=== PATIENT | male | born 1960 | race Caucasian/White ===

== ENCOUNTER 2016-10-10 10:47 | Inpatient (IN) | payer OTHER ==
[2016-09-17 12:03] VITALS: BMI 53.0
--- NOTE | 2016-09-17 12:33 | PAT Medication Instructions ---
Service Date Sep 17, 2016. Current Home Medication List Albuterol Sulfate (Proair Respiclick), 2 PUFF INH Q4 PRN for SOB/Wheezing Amitriptyline Hcl (Elavil), 50 MG PO HS Aripiprazole (Abilify), 2 TAB PO HS Ascorbic Acid (Vitamin C), 500 MG PO QAM Aspirin (Aspirin Ec), 81 MG PO DAILY Bupropion (Wellbutrin Sr), 150 MG PO NOON Clonazepam (Klonopin), 2.5 TAB PO HS Gabapentin (Neurontin), 300 MG PO BID Latanoprost (Xalatan 0.005% Oph Cecilia), 1 DROPS OP DAILY Levothyroxine Sodium (Levothyroxine Sodium), 1 TAB PO QPM Losartan Potassium & Hydrochlo (Losartan Potassium/Hydroc), 1 TAB PO QAM Multiple Vitamins W/ Minerals (Centrum Silver Adult 50+), 1 TAB PO QAM Simvastatin (Zocor), 10 MG PO QPM Medication Instructions For Your Scheduled Surgery - Instructed by surgeon's office to hold for one week prior to surgery: Aspirin (Aspirin Ec), 81 MG PO DAILY - Hold the following medications the morning of surgery: Losartan Potassium & Hydrochlo (Losartan Potassium/Hydroc), 1 TAB PO QAM Multiple Vitamins W/ Minerals (Centrum Silver Adult 50+), 1 TAB PO QAM Ascorbic Acid (Vitamin C), 500 MG PO QAM - Take the following medications the morning of surgery with a sip of water OTHERWISE NOTHING TO EAT OR DRINK AFTER MIDNIGHT: Latanoprost (Xalatan 0.005% Oph Cecilia), 1 DROPS OP DAILY Gabapentin (Neurontin), 300 MG PO BID Bupropion (Wellbutrin Sr), 150 MG PO NOON Albuterol Sulfate (Proair Respiclick), 2 PUFF INH Q4 PRN for SOB/Wheezing (USE IF NEEDED; BRING TO HOSPITAL) - Take the following medications as scheduled the night before surgery: Simvastatin (Zocor), 10 MG PO QPM Amitriptyline Hcl (Elavil), 50 MG PO HS Aripiprazole (Abilify), 2 TAB PO HS Clonazepam (Klonopin), 2.5 TAB PO HS Levothyroxine Sodium (Levothyroxine Sodium), 1 TAB PO QPM Gabapentin (Neurontin), 300 MG PO BID Albuterol Sulfate (Proair Respiclick), 2 PUFF INH Q4 PRN for SOB/Wheezing If you have any questions please call us at [phone] (Raissa Lewis PA-C ) or [phone] or [phone]
[2016-09-17 13:12] LABS: BASO % 0.3 %; BASO ABS # 0.04 K/uL (0-0.2); COMPLETE YES; EOS % 1.8 %; HEMATOCRIT 43.7 % (42-52); IG% 0.3 %; LYMPH % 14.8 %; LYMPH ABS # 1.75 K/uL (1.2-3.4); MEAN CELL VOLUME 95.6 fL (80-100); MEAN CORPUSCULAR HEMOGLOBIN 32.8 pg (25-34); MEAN CORPUSCULAR HGB CONC 34.3 g/dl (32-36); MEAN PLATELET VOLUME 10.2 fL (7.4-10.4); MONO % 7.9 %; NEUT % 74.9 %; PLATELET COUNT 239 K/uL (130-400); RED BLOOD COUNT 4.57 M/uL (4.7-6.1); WHITE BLOOD COUNT 11.85 K/uL (4.8-10.8)
--- NOTE | 2016-09-17 13:22 | DIAGNOSTIC IMAGING REPORT ---
TWO VIEW CHEST CLINICAL HISTORY: Preoperative examination. FINDINGS: PA and lateral chest radiographs are compared to study dated 04/05/2015. The examination is significant degraded by large body habitus. The heart appears mildly enlarged. The pulmonary vasculature is noncongested. Bibasilar atelectasis is observed. The lungs and pleural spaces are otherwise clear. There is no pneumothorax. The bony thorax appears intact. IMPRESSION: Mild cardiac enlargement with no active disease in the chest. Electronically signed by: Robin Matthews M.D. 09/17/2016 1:20 PM Dictated Date/Time: 09/17/2016 1:19 PM
[2016-09-17 13:31] LABS: ESTIMATED AVERAGE GLUCOSE 117 mg/dl; HA1C FLAG Normal (Normal)
[2016-09-17 13:35] LABS: PARTIAL THROMBOPLASTIN RATIO 1.1; PROTHROMBIN TIME (PATIENT) 11.1 SECONDS (9.0-12.0)
[2016-09-17 13:41] LABS: CALCIUM 9.5 mg/dl (8.5-10.1); CREATININE 0.76 mg/dl (0.60-1.40); POTASSIUM 4.3 mmol/L (3.5-5.1)
--- NOTE | 2016-09-17 15:20 | History and Physical ---
History & Physical PROCEDURE: Left knee replacement. HISTORY OF PRESENT ILLNESS: The patient is a pleasant 54-year-old male who presents for preoperative evaluation prior to left knee replacement. The patient states that he is having pain in the knee for several years now, which is gradually worsening. It has gotten to the point now that it is affecting his daily activities including walking, standing, going up and down steps. He takes oral anti-inflammatories including aspirin and ibuprofen. He is on chronic hydrocodone from his PCP. He had a previous cortisone injection and viscosupplementation without relief. He does also ambulate with a cane. After discussing further care would like to proceed with a left knee replacement. he had his right TKA in 2015. PAST MEDICAL HISTORY: 1. Hypertension. 2. High cholesterol. 3. Sleep apnea. 4. Anxiety. 5. Hypothyroidism. ALLERGIES: PENICILLIN CAUSES ITCHING. CURRENT MEDICATIONS: 1. Hydrocodone 10/325 p.r.n. pain. 2. Aspirin 81 mg daily. 3. Losartan/HCTZ 100/12.5 mg daily. 4. Abilify 20 mg daily. 5. Simvastatin 10 mg daily. 6. Latanoprost 2.5 daily. PAST SURGICAL HISTORY: Right Total Knee Replacement FAMILY HISTORY: Noncontributory. SOCIAL HISTORY: The patient denies a history of smoking or tobacco use. No alcohol consumption. REVIEW OF SYSTEMS: Otherwise negative. Please see HPI for pertinent positives. PHYSICAL EXAMINATION: GENERAL: Pleasant male in no acute distress, alert and oriented x3, he weighs 325 pounds. HEENT: Normocephalic, atraumatic. CARDIAC: Regular rate and rhythm. No murmurs or gallops were appreciated. Resting pulse 80 beats per minute. LUNGS: Clear to auscultation without rales or wheeze bilaterally. ABDOMEN: Soft, nontender, obese. Bowel sounds present. EXTREMITIES: Left lower extremity neurovascularly intact. Calves are soft and nontender. DP pulses +2. Overall has varus alignment. He has positive crepitation with motion, range of motion is 0/5/110. He has diffuse tenderness to the knee. Knee is ligamentously stable. IMAGING: Reviewed shows complete loss of joint space medial compartment with varus alignment, subchondral sclerosis, focal osteophytes, and joint space narrowing. Also has degenerative changes of the patellofemoral joint. IMPRESSION: 1. Left knee degenerative joint disease. 2. Hypertension. 3. High cholesterol. 4. Anxiety. PLAN: Further care was discussed with Yehuda. At this point in time he has failed conservative measures and would like to proceed with a left knee replacement at [facility] as scheduled. Will follow up postop 2 weeks postop for staple removal, sooner if he is having any problems. Placed on aspirin 325 mg 1 tablet p.o. b.i.d. for one month postop.
[~2016-10-10] VITALS: Ht 177.8 cm; Wt 166.4 kg
[2016-10-10] MEDS: TRANEXAMIC ACID INJ 1,000 MG in SODIUM CHLORIDE 0.9% 100ML 100 ML IV SCH ×2 (06:30→14:57)
--- NOTE | 2016-10-10 07:12 | History & Physical Bridge Note ---
H&P Re-Evaluation Bridge Note: I have examined the patient, reviewed the History & Physical and in the interval since the performance of the History & Physical I have noted the following changes of clinical significance: No changes noted
[~2016-10-10 10:47] MED LIST: ABL10 PO; ACETAMINOPHEN 500 MG TAB PO SCH; ALBU18002 INH; AMT50 PO; ASCA500 PO; ASPI81TA28 PO; BUPIVACAINE 0.5 % 5 MG/1 ML PF 10ML VIAL ONE; BUPR-79 PO; CEFAZOLIN 3000 MG/65 ML D5W 65 ML IV SCH; CLON1TAB3 PO; CeleBREX 200 MG CAP PO SCH; DEXAMETHASONE 4 MG TAB PO SCH; FAMOTIDINE 20 MG TAB PO SCH; GABA-113 PO; GABAPENTIN 300 MG CAP PO SCH; LACTATED RINGER'S 1000ML 1,000 ML IV SCH; LACTATED RINGER'S 1000ML 500 ML IV ONE; LATA0.5S OP; LEVO175T3 PO; LOSA100T26 PO; METOCLOPRAMIDE HCL 10 MG TAB PO SCH; MULT-845 PO; ROPIVACAINE 5MG/ML 30 ML 150 MG, BUPIVACAINE/EPINEPHR 0.5% MPF 30 ML, KETOROLAC TROMETH... INFIL SCH; SIMV10TA2 PO; ~ANCEF~ALLERGY NOTED TO ORDERED MEDICATION SCH
[2016-10-10] MEDS ORDERED: ORTHO JOINT ANESTHETIC ONE (11:35)
[2016-10-10 12:06] VITALS: BP 120/94; PULSE 107; TEMP 36.5; O2SAT 98; Ht 177.8 cm; Wt 166.4 kg
[2016-10-10] MEDS ORDERED: FENTANYL CITRATE INJ 50 MCG/1 ML 2 ML VIAL IV PRN (12:15)
[2016-10-10] MEDS ORDERED: EpHEDrine SULFATE INJ 50 MG/ML AMP IV PRN (12:15)
[2016-10-10] MEDS ORDERED: ONDANSETRON INJ 2 MG/ML 2 ML VIAL IV PRN ×2 (12:15→17:30)
[2016-10-10] MEDS ORDERED: ATROPINE SULFATE 0.1 MG/ML 5ML SYR IV PRN (12:15)
[2016-10-10] MEDS ORDERED: MIDAZOLAM HCL 1 MG/ML 2ML VIAL ONE ×4 (12:22→14:41)
[2016-10-10] MEDS ORDERED: FENTANYL CITRATE INJ 50 MCG/1 ML 2 ML VIAL ONE (12:23)
[2016-10-10] MEDS ORDERED: VANCOMYCIN INJ 2,000 MG in SODIUM CHLORIDE 0.9% 500ML 500 ML IV ONE (13:30)
[2016-10-10] MEDS ORDERED: PROPOFOL IV EMULSION 10 MG/ML 20 ML VIAL IV ONE ×2 (14:38→16:18)
[2016-10-10] MEDS ORDERED: BACITRACIN 50000 UNIT VIAL IR ONE (16:37)
[2016-10-10] MEDS ORDERED: POVIDONE-IODINE OP SOLN 30 ML BTL TOP ONE (16:37)
--- NOTE | 2016-10-10 17:17 | [facility] Post Operative Brief Note ---
Immediate Operative Summary Operative Date Oct 10, 2016. Pre-Operative Diagnosis OSTEOARTHRITIS LEFT KNEE Post-Operative Diagnosis OSTEOARTHRITIS LEFT KNEE Procedure(s) Performed LEFT TOTAL KNEE ARTHROPLASTY Surgeon DR SMITH Noodle Press Operator Surgeon(s) YASEMIN BURNETTE Estimated Blood Loss 20 Findings severe djd left knee knee Specimens BONE AND TISSUE LEFT KNEE Complication(s) None Disposition Recovery Room / PACU
[2016-10-10] MEDS ORDERED: [UNRECOGNIZED DRUG - REMARK] SCH (17:30)
[2016-10-10] MEDS ORDERED: SOD PHOSPHATE/SOD BIPHOSPHATE ENEMA 132 ML BTL PR PRN (17:30)
[2016-10-10] MEDS ORDERED: ZOLPIDEM TARTRATE 5 MG TAB PO PRN (17:30)
[2016-10-10] MEDS ORDERED: ALUMINUM/MAGNESIUM/SIMETH (MAALOX MAX) 30 ML UDC PO PRN (17:30)
[2016-10-10] MEDS ORDERED: BISACODYL 10 MG SUPP PR PRN (17:30)
[2016-10-10] MEDS ORDERED: METOCLOPRAMIDE HCL INJ 5 MG/ML 2 ML VIAL IV PRN (17:30)
[2016-10-10] MEDS ORDERED: MAGNESIUM HYDROXIDE SUSP 30 ML UDC PO PRN (17:30)
[2016-10-10] MEDS ORDERED: DiphenhydrAMINE HCL 50 MG/ML VIAL IV PRN (17:30)
--- NOTE | 2016-10-10 18:13 | OPERATIVE REPORT ---
DATE OF OPERATION: 10/10/2016 PREOPERATIVE DIAGNOSIS: Severe end-stage degenerative joint disease left knee, with varus alignment left knee. POSTOPERATIVE DIAGNOSIS: Same. PROCEDURE: Left total knee arthroplasty utilizing Marquis \T\ Nephew Journey II nonblock total knee arthroplasty with stem size 6 femur, 5 tibia with an 18 x 100 mm stem, 9 mm poly, 32 mm oval patella. SURGEON: Mandeep Torres DO REFRACTORY REPAIRER: RADHA Silva who was necessary for prepping, draping, retraction, wound closure of deep fascia, subQ and skin and was necessary for the case. ESTIMATED BLOOD LOSS: 10 mL. COMPLICATIONS: None. TOURNIQUET TIME: One hour. HISTORY OF PRESENT ILLNESS: The patient presents as a 56-year-old white male with complaints of ongoing pain about his left knee. He has failed attempts at conservative management including physical therapy, anti-inflammatories, corticosteroid injections and viscous supplementations. He approximately 4 years prior had undergone a right total knee arthroplasty successfully. Extensive discussion regarding his morbid obesity was had preoperatively. The patient understands risks, complications and his inability to ambulate due to pain. The decision was made to proceed forward with total knee arthroplasty. The patient underwent the above procedure. OPERATION AND FINDINGS: PROCEDURE: The patient was properly prepped and draped in supine position for total knee arthroplasty after identifying the appropriate surgical site. An anterior midline incision was made through the subcutaneous tissues down to the region of the extensor mechanism. A medial parapatellar incision was subsequently made. Meticulous hemostasis was obtained and performed at all times. The patella having been subluxed lateralward, medial and lateral meniscal remnants were excised. The patellar cut was then initially made and was sized to the appropriate size. After subluxing the tibia forward the appropriate meniscal fragments having been removed the distal femur was then cut first utilizing a Marquis and Nephew block. The distal femoral cuts and chamfer cuts were all made under direct visualization and the proximal tibial osteotomy cut was also made utilizing Marquis and Nephew blocks and checked with an extramedullary guide. The appropriate trial components on the femur and tibia were placed. Appropriate trial spacers were used to check flexion and extension gaps. With flexion and extension gaps being equal, the components were then subsequently after thorough irrigation and debridement lavage components were then subsequently cemented in the following order: femur, tibia and patella. Exparel was used for intraoperative anesthesia, the medial parapatellar incision was closed utilizing #1 Vicryl, subQ was closed with 2-0 Vicryl, skin was closed with skin clips. A sterile compression dressing was placed. The patient was taken to recovery room in stable condition. Due to the complex nature of the procedure, the entire surgery was performed with the operational assistance of Clement Arriaga PA-C. The material assistant, under direct supervision, was involved in the actual performance of all aspects of the surgical procedure including hemostasis, tissue retraction and incision, instrument management, patient positioning, and wound closure. I attest to the content of the Intraoperative Record and any orders documented therein. Any exceptio ns are noted below.
[2016-10-10] MEDS ORDERED: MoRPHine SULFATE 2 MG/ML CARP IV PRN ×2 (18:15→19:15)
--- NOTE | 2016-10-10 18:28 | Anesthesiology Progress Note ---
Anesthesia Post Op Note Date & Time Oct 10, 2016 at 18:27 Vital Signs Pain Intensity: 0 Vital Signs Past 12 Hours Date Time Temp Pulse Resp B/P Pulse Ox O2 Delivery O2 Flow Rate FiO2 10/10/16 17:59 37.0 114 16 120/63 97 Mask 10 10/10/16 12:06 36.5 107 20 120/94 98 Room Air Notes Mental Status: alert / awake / arousable, participated in evaluation Pt Amnestic to Procedure: Yes Nausea / Vomiting: adequately controlled Pain: adequately controlled Airway Patency, RR, SpO2: stable & adequate BP & HR: stable & adequate Hydration State: stable & adequate Neuraxial Anesthesia: was administered, sensory block is resolving Anesthetic Complications: no major complications apparent Of note, patient HR in low 100's. In preop, his HR was 107. Patient denies any SOB, chest pain/tightness, dizziness, lightheadedness. Patient received 2 liters of fluid but has been NPO since before midnight. PACU nurse to continue IVF therapy and patient ok for transfer to the floor.
--- NOTE | 2016-10-10 18:39 | DIAGNOSTIC IMAGING REPORT ---
LEFT KNEE 2 VIEWS CLINICAL HISTORY: Postop examination. COMPARISON: None. DISCUSSION: There are postsurgical changes of a total left knee arthroplasty and patellar resurfacing. The femoral and tibial components appear well seated. Overlying skin sandra and surgical drains are evident. There is air within soft tissues consistent with the history of recent surgery IMPRESSION: Postsurgical changes of a total left knee arthroplasty Electronically signed by: Dean Chandra M.D. 10/10/2016 6:38 PM Dictated Date/Time: 10/10/2016 6:37 PM
[2016-10-10 18:45] VITALS: BP 138/83; PULSE 112; TEMP 37.4; O2SAT 97
[2016-10-10 19:15] VITALS: BP 146/83; PULSE 117; TEMP 36.6; O2SAT 96
[2016-10-10] MEDS ORDERED: MoRPHine SULFATE 4 MG/ML 1 ML CARP\\VIAL IV PRN (19:15)
[2016-10-10] MEDS ORDERED: MoRPHine SULFATE 10 MG/ML CARP/VIAL IV PRN (19:15)
[2016-10-10] MEDS: OXYCODONE HCL 10 MG TABCR (OXYCONTIN) PO SCH (19:43)
[2016-10-10] MEDS: SODIUM CHLORIDE 0.9% 1000ML 1,000 ML IV SCH (19:43)
[2016-10-10 19:47] VITALS: BP 125/75; PULSE 119; TEMP 36.5; O2SAT 94
[2016-10-10] MEDS ORDERED: CLINDAMYCIN IV 600 MG in DEXTROSE 5% ADD-VANTAGE 50ML 50 ML IV SCH (20:00)
[2016-10-10 20:45] VITALS: BP 116/80; PULSE 120; TEMP 36.4; O2SAT 96
[2016-10-10] MEDS ORDERED: NURSING VERBAL MED ORDER ONE (20:45)
[2016-10-10] MEDS: SIMVASTATIN 10 MG TAB PO SCH (20:51)
[2016-10-10] MEDS: DOCUSATE SODIUM 100 MG CAP PO SCH (20:51)
[2016-10-10] MEDS: ASPIRIN 325 MG ECTAB PO SCH (20:51)
[2016-10-10] MEDS: ARIPIprazole TAB 10 MG TAB PO SCH (20:51)
[2016-10-10] MEDS: SENNA 8.6 MG TAB PO SCH (20:51)
[2016-10-10] MEDS: GABAPENTIN 300 MG CAP PO SCH (20:51)
[2016-10-10] MEDS: AMITRIPTYLINE HCL 50 MG TAB PO SCH (20:51)
[2016-10-10] MEDS: LEVOTHYROXINE 175 MCG TAB PO SCH (20:51)
[2016-10-10] MEDS: CLONAZEPAM 1 MG TAB PO SCH (20:52)
[2016-10-10] MEDS: HYDROCODONE/ACETAMOPHEN 5/325MG TAB PO PRN (22:45)
[2016-10-10] MEDS: TAMSULOSIN HCL 0.4 MG CAP PO SCH (22:45)
[2016-10-10 22:50] VITALS: BP 102/69; PULSE 108; TEMP 36.7; O2SAT 96
[2016-10-10] MEDS ORDERED: TRANEXAMIC ACID INJ 1,000 MG in SODIUM CHLORIDE 0.9% 100ML 100 ML IV SCH (23:00)
--- NOTE | 2016-10-11 02:38 | INTERNAL MEDICINE CONSULTATION ---
DATE OF CONSULTATION: 10/10/2016 TIME: 11:44 p.m. CONSULTING PHYSICIAN: Dr. Mandeep Torres. REASON FOR CONSULTATION: Postoperative medical management. HISTORY OF PRESENT ILLNESS: The patient is a very pleasant 56-year-old male with a past medical history which includes hypertension, dyslipidemia, paranoid schizophrenia, asthma, obstructive sleep apnea, presenting for left total knee arthroplasty. The patient underwent a total knee arthroplasty by Dr. Mandeep Torres today. ESTIMATED BLOOD LOSS: 20 mL. The patient was seen and examined while he is at his room at the medical surgical floor in [facility]. The patient is sleeping, but easily arousable. He is pleasant, alert, oriented x3. States that his back pain is about 7/10 to the evening. Denies having any chest pain, palpitations, shortness of breath, dyspnea, dizziness, nausea, vomiting. No abdominal pain. No other symptoms noted. The patient denies any other symptoms. REVIEW OF SYSTEMS: Ten systems reviewed and negative except for the ones mentioned above. PAST MEDICAL HISTORY: Hypertension, dyslipidemia, paranoid schizophrenia, asthma, obstructive sleep apnea. MEDICATIONS: Losartan and hydrochlorothiazide 100/12.5 mg daily, simvastatin 10 mg daily, Abilify 20 mg daily, Aricept 15 mg at bedtime, amitriptyline 50 mg at bedtime, bupropion 50 mg at bedtime, Klonopin 2.5 mg at bedtime, albuterol as needed, aspirin, gabapentin, and L-thyroxine. PAST SURGICAL HISTORY: Left total knee replacement. FAMILY HISTORY: Noncontributory. SOCIAL HISTORY: Denies smoking or alcohol use. PHYSICAL EXAMINATION: VITAL SIGNS: Blood pressure is 160/80, pulse rate of 92, respiratory rate 14, temperature 36.4, saturating 96% on 4 liters nasal cannula. GENERAL: The patient is awake, alert, oriented x3, not in distress, speaks in sentences. No accessory muscle use. HEAD AND NECK: Atraumatic and normocephalic. Normal pupils. Full EOMs. No icterus. [place] conjunctivae. ENT: Grossly normal. NECK: No JVD, no lymphadenopathy, no thyromegaly. HEART: Normal rate. Regular rhythm. S1, S2. No murmurs. LUNGS: Clear breath sounds bilaterally. No rales. ABDOMEN: Nondistended, normal bowel sounds, soft, nontender. EXTREMITIES: No pedal edema noted. No rashes noted. NEUROLOGIC: No gross focal motor or sensory deficits. LABS: No other labs noted today. ASSESSMENT AND PLAN: This is a very pleasant 56-year-old male with a history of hypertension, dyslipidemia, paranoid schizophrenia, asthma, obstructive sleep apnea, presenting for left total knee arthroplasty. 1. Left knee arthroplasty, postoperative day 0. At this time, vital signs appear to be stable. Monitor CBC and PRP tomorrow. Episode of tachycardia has resolved, most likely from pain. We will continue to monitor, continue IV fluids. 2. Hypertension. Hold losartan and hydrochlorothiazide for now to prevent hypotension. Monitor BP closely and resume accordingly. 3. Dyslipidemia, on statin. 4. History of paranoid schizophrenia, mood stable. Continue usual medicines. 5. Asthma, not in exacerbation. Continue p.r.n. albuterol. 6. Obstructive sleep apnea, CPAP ordered. I have encouraged patient to use this. Thank you for this consultation. We will follow the patient very closely with you. If you have any questions, please do not hesitate to [facility] by our team pager. Thank you for allowing us to participate in the care of your patient. The patient will be followed tomorrow by Dr. Dandre Strickland. GABRIEL
[2016-10-11 03:05] VITALS: BP 123/77; PULSE 103; TEMP 36.9; O2SAT 94
[2016-10-11] MEDS: SODIUM CHLORIDE 0.9% 1000ML 1,000 ML IV SCH ×2 (03:12→12:23)
[2016-10-11] MEDS: HYDROCODONE/ACETAMOPHEN 5/325MG TAB PO PRN ×4 (03:14→20:11)
[2016-10-11] MEDS: OXYCODONE HCL 10 MG TABCR (OXYCONTIN) PO SCH ×2 (05:52→17:54)
--- NOTE | 2016-10-11 07:05 | Orthopedic Progress Note ---
Orthopedic Progress Note Date of Service Oct 11, 2016. Subjective Post OP Day: 1 (s/p Left TKA) Reports: feeling well, pain controlled w PO medications, Denies: SOB, calf pain , chest pain, complaints, light headedness, nausea / vomiting Objective calves soft nontender, N/V intact, capillary refill less than 2 sec., dressing C /D/I, A&O x3, toes mobile, hemovac drainage (175cc/ 8 hours) Date Time Temp Pulse Resp B/P Pulse Ox O2 Delivery O2 Flow Rate FiO2 10/11/16 03:05 36.9 103 18 123/77 94 Nasal Cannula 4.0 10/10/16 23:40 Nasal Cannula 2.0 10/10/16 22:50 36.7 108 16 102/69 96 Nasal Cannula 4.0 10/10/16 20:45 36.4 120 20 116/80 96 Nasal Cannula 4.0 10/10/16 19:47 36.5 119 17 125/75 94 Nasal Cannula 4.0 10/10/16 19:21 97 Nasal Cannula 2.0 10/10/16 19:20 Nasal Cannula 4.0 10/10/16 19:15 36.6 117 21 146/83 96 Nasal Cannula 4.0 10/10/16 18:45 37.4 112 20 138/83 97 Nasal Cannula 4.0 10/10/16 18:35 111 16 10/10/16 18:35 110 16 92 10/10/16 18:33 132/78 10/10/16 18:30 109 17 94 10/10/16 18:30 108 17 10/10/16 18:29 37.0 10/10/16 18:28 114/76 10/10/16 18:25 111 17 10/10/16 18:25 110 17 95 10/10/16 18:24 109 20 10/10/16 18:24 109 20 94 10/10/16 18:23 109/68 10/10/16 18:21 107/71 10/10/16 18:19 108 15 94 10/10/16 18:19 108 15 10/10/16 18:14 110 18 94 10/10/16 18:14 110 18 10/10/16 18:13 109/71 10/10/16 18:09 112 17 10/10/16 18:09 112 17 95 10/10/16 18:08 106/65 10/10/16 18:04 114 14 97 10/10/16 18:04 115 14 10/10/16 18:03 120/74 10/10/16 17:59 112 18 97 10/10/16 17:59 112 18 10/10/16 17:59 37.0 114 16 120/63 97 Mask 10 10/10/16 12:06 36.5 107 20 120/94 98 Room Air Laboratory Results 24 Hours: Test 10/11/16 04:44 Assessment & Plan Assessment: POD #1 s/p Left TKA -PT/OT -dvt proph with ALEX/SCD/ASA -plan for d/c home with HHPT when stable -prevena wound vac -labs pending 1. Hypertension. 2. High cholesterol. 3. Sleep apnea. 4. Anxiety. 5. Hypothyroidism. Discharge Planning Discharge Planning: home with home health DVT Prophylaxis: TEDs, SCDs, ASA Therapy: Physical Therapy
--- NOTE | 2016-10-11 07:18 | Discharge Instructions ---
Discharge Instructions Admission Reason for Admission: Left Knee Osteoarthritis Discharge Discharge Diagnosis / Problem: s/p Left TKA Discharge Goals Goal(s): Decrease discomfort, Improve function, Increase independence Activity Recommendations Activity Limitations: as noted below Weightbearing Status: Left weightbearing (as tolerated) . Instructions / Follow-Up Instructions / Follow-Up ACTIVITY RECOMMENDATIONS: SELF CARE INSTRUCTIONS AFTER TOTAL KNEE REPLACEMENT A. You may need to continue a physical therapy program after discharge from the hospital. There are several options available to you. Your doctor will assist you in selecting the best one for you. 1. An out-patient facility 2 to 3 times a week for therapy or home therapy. 2. Continue working on all exercises taught to you in the hospital. Your goals should be to increase bending of your knee to 90 degrees and beyond and to fully straighten your knee. B. You may progress at your own pace from walking with a walker or crutches to a cane; then to no assistive devices. C. Make walking a part of your daily routine. Be up as much as comfortable with rest periods throughout the day. Rest with leg elevation is very important. Use the ice wrap frequently for the first 3-4 weeks. D. There are no restrictions on activities. You may ride in a car, shop, participate in specimen transporter and all social activities. E. Wear the long elastic stockings (ALEX hose) 20 hours a day for 2 weeks after surgery. They can be removed several times a day for laundering and for a bath. F. You may shower, no tub baths until cleared by your doctor. SPECIAL CARE INSTRUCTIONS: VERY IMPORTANT TO READ AND REVIEW A. There are a few signs you need to watch for after you are home. Call [facility] if you notice any of the followin. Increased severe knee pain. Some pain is expected especially when you exercise. 2. Increased swelling in your leg or knee; pain or swelling of the calf muscle in either lower leg. 3. Any fluid drainage from the incision. 4. Shortness of breath or chest pain. B. Please call [facility] at if you have any concerns or questions about your operation or recovery. The doctor or his nurse will return your call promptly. C. You must take antibiotics before dental work, bladder, bowel or other surgery. Your doctor will provide you with a permanent care to carry describing this precaution. IMPORTANT: * REMEMBER TO TAKE ASPIRIN, 81 MG, TWICE DAILY FOR 4 WEEKS UNLESS OTHERWISE DIRECTED. THIS IS YOUR BLOOD THINNER. * HIGH RISK PATIENTS MAY BE PRESCRIBED A STRONGER BLOOD THINNER. THIS WILL BE PROVIDED AT DISCHARGE. * CALL IF INCREASED PAIN, REDNESS, DRAINAGE OR FEVER GREATER THAT 101. * WEAR ALEX HOSE 20 HOURS PER DAY FOR 2 WEEKS. * Prevena- This is a large suction dressing covering your incision. This will help pull any excess drainage from the wound and allow your incision to heal properly. You may shower with this if you can keep the unit outside of the shower. If any bleeding or leakage is noted please call your doctor's office. This will remain on your incision for 7 days and then should be removed. This can be done yourself or by the home nursing staff if applicable. The entire unit is disposable once removed. Once removed, keep incision clean and dry. If redness or drainage is noted, please call your surgeon. FOLLOW UP VISIT: If appointment is not already scheduled: Please call [facility] to make a follow-up appointment for 2 weeks after your surgery at . Current Hospital Diet Patient's current hospital diet: Regular Diet Discharge Diet Recommended Diet: Regular Diet Procedures Procedures Performed: LEFT TOTAL KNEE ARTHROPLASTY Pending Studies Studies pending at discharge: no Laboratory Results Hemoglobin A1c Test 09/17/16 12:48 Range/Units Estimated Average Glucose 117 mg/dl Hemoglobin A1c 5.7 H 4.5-5.6 % Medical Emergencies . Who to Call and When: Medical Emergencies: If at any time you feel your situation is an emergency, please call 911 immediately. . Non-Emergent Contact Non-Emergency issues call your: Primary Care Provider, Surgeon . "Provider Documentation" section prepared by Yang Mckeon. VTE Core Measure Inpt VTE Proph given/why not?: Other Anticoagulation (ASA 81mg po bid x 1 month ), T.E.D. Stockings, SCD's
[2016-10-11 07:20] VITALS: BP 96/68; PULSE 98; TEMP 36.9; O2SAT 95
[2016-10-11 07:38] LABS: HEMATOCRIT 41.3 % (42-52); MEAN CELL VOLUME 97.4 fL (80-100); MEAN CORPUSCULAR HGB CONC 33.9 g/dl (32-36); MEAN PLATELET VOLUME 10.2 fL (7.4-10.4); PLATELET COUNT 196 K/uL (130-400); RED BLOOD COUNT 4.24 M/uL (4.7-6.1); WHITE BLOOD COUNT 22.97 K/uL (4.8-10.8)
[2016-10-11 08:10] LABS: CALCIUM 8.3 mg/dl (8.5-10.1); CREATININE 1.1 mg/dl (0.60-1.40); POTASSIUM 4.1 mmol/L (3.5-5.1)
[2016-10-11] MEDS: GABAPENTIN 300 MG CAP PO SCH ×2 (08:19→20:36)
[2016-10-11] MEDS: FERROUS GLUCONATE 324 MG TAB PO SCH ×3 (08:19→17:53)
[2016-10-11] MEDS: PANTOprazole SOD 40 MG TAB PO SCH (08:20)
[2016-10-11] MEDS: ASCORBIC ACID 500 MG TAB PO SCH (08:20)
[2016-10-11] MEDS: LATANOPROST 0.005% OP SOLN 2.5 ML BTL OP SCH (08:20)
[2016-10-11] MEDS: DOCUSATE SODIUM 100 MG CAP PO SCH ×2 (08:20→20:37)
[2016-10-11] MEDS: ASPIRIN 325 MG ECTAB PO SCH ×2 (08:20→20:37)
[2016-10-11] MEDS: CEROVITE ADV FORMULA TAB PO SCH (08:21)
[2016-10-11] MEDS ORDERED: MULTIVITAMIN TAB PO SCH (09:00)
[2016-10-11] MEDS ORDERED: ASPIRIN 81 MG ECTAB PO SCH (09:00)
--- NOTE | 2016-10-11 09:53 | Anesthesiology Progress Note ---
Anesthesia Post Op Note Date & Time Oct 11, 2016 at 09:53 Vital Signs Pain Intensity: 6.0 Vital Signs Past 12 Hours Date Time Temp Pulse Resp B/P Pulse Ox O2 Delivery O2 Flow Rate FiO2 10/11/16 07:20 36.9 98 16 96/68 95 Room Air 10/11/16 07:15 Room Air 10/11/16 03:05 36.9 103 18 123/77 94 Nasal Cannula 4.0 10/10/16 23:40 Nasal Cannula 2.0 10/10/16 22:50 36.7 108 16 102/69 96 Nasal Cannula 4.0 Notes Mental Status: alert / awake / arousable, participated in evaluation Pt Amnestic to Procedure: Yes Nausea / Vomiting: adequately controlled Pain: adequately controlled Airway Patency, RR, SpO2: stable & adequate BP & HR: stable & adequate Hydration State: stable & adequate Neuraxial Anesthesia: sensory block resolved Anesthetic Complications: no major complications apparent
[2016-10-11 11:00] VITALS: BP 119/73; PULSE 91; TEMP 36.8; O2SAT 99
[2016-10-11] MEDS: BuPROPion SR 150 MG TABCR PO SCH (12:23)
[2016-10-11 13:11] VITALS: O2SAT 100
[2016-10-11 15:30] VITALS: O2SAT 100
--- NOTE | 2016-10-11 17:34 | Progress Note ---
Internal Med Progress Note Date of Service: Oct 11, 2016. Provider Documentation: SUBJECTIVE: Patient is seen and examined at bedside. States having no pain in left knee. States having dry cough and an episode of burning micturition. Denies any chest pain, SOB. OBJECTIVE: Vital Signs-as noted below Physical Exam: General Appearance:Obese, no apparent distress Head: normocephalic, Atraumatic Eyes: normal inspection, EOMI, PERRLA Neck: supple, no JVD, Trachea midline Respiratory/Chest: Normal breath sounds, CTA, No accessory muscle use Cardiovascular: S1, S2, No murmur Abdomen/GI:Soft, Non tender, Bowel sounds present Extremities/Musculoskelatal:Left knee in bandage, no edema Neurologic/Psych:AAOX3, grossly no focal neurological deficits Skin: normal color, warm Lab data as noted below. ASSESSMENT & PLAN: LEUKOCYTOSIS: Likely stress induced Afebrile Currently no obvious source of infection Check Lactate, Procalcitonin, UA Will consider CXR if cough persistent No antibiotics for now Will monitor Left Knee Arthroplasty: POD #1 Stable Pain control and anticoagulation per primary team PT/OT Bowel regimen to prevent constipation Hypertension: Well controlled Hold losartan, HCTZ for now will monitor Dyslipidemia: Continue statin. H/O paranoid schizophrenia: Stable Continue home meds Asthma: Stable albuterol PRN Obstructive sleep apnea: Patient non complaint with CPAP use Hypothyroidism: Continue Levothyroxine DVT Px: Per Primary team Vital Signs: Date Time Temp Pulse Resp B/P Pulse Ox O2 Delivery O2 Flow Rate FiO2 10/11/16 15:30 100 Nasal Cannula 2.0 10/11/16 13:11 100 10/11/16 11:00 36.8 91 18 119/73 99 Nasal Cannula 2.0 10/11/16 07:20 36.9 98 16 96/68 95 Room Air 10/11/16 07:15 Room Air 10/11/16 03:05 36.9 103 18 123/77 94 Nasal Cannula 4.0 10/10/16 23:40 Nasal Cannula 2.0 10/10/16 22:50 36.7 108 16 102/69 96 Nasal Cannula 4.0 10/10/16 20:45 36.4 120 20 116/80 96 Nasal Cannula 4.0 10/10/16 19:47 36.5 119 17 125/75 94 Nasal Cannula 4.0 10/10/16 19:21 97 Nasal Cannula 2.0 10/10/16 19:20 Nasal Cannula 4.0 10/10/16 19:15 36.6 117 21 146/83 96 Nasal Cannula 4.0 10/10/16 18:45 37.4 112 20 138/83 97 Nasal Cannula 4.0 10/10/16 18:35 111 16 10/10/16 18:35 110 16 92 10/10/16 18:33 132/78 10/10/16 18:30 109 17 94 10/10/16 18:30 108 17 10/10/16 18:29 37.0 10/10/16 18:28 114/76 10/10/16 18:25 111 17 10/10/16 18:25 110 17 95 10/10/16 18:24 109 20 10/10/16 18:24 109 20 94 10/10/16 18:23 109/68 10/10/16 18:21 107/71 10/10/16 18:19 108 15 94 10/10/16 18:19 108 15 10/10/16 18:14 110 18 94 10/10/16 18:14 110 18 10/10/16 18:13 109/71 10/10/16 18:09 112 17 10/10/16 18:09 112 17 95 10/10/16 18:08 106/65 10/10/16 18:04 114 14 97 10/10/16 18:04 115 14 10/10/16 18:03 120/74 10/10/16 17:59 112 18 97 10/10/16 17:59 112 18 10/10/16 17:59 37.0 114 16 120/63 97 Mask 10 Lab Results: Results Past 24 Hours Test 10/11/16 07:29 10/11/16 16:18 Range/Units White Blood Count 22.97 4.8-10.8 K/uL Red Blood Count 4.24 4.7-6.1 M/uL Hemoglobin 14.0 14.0-18.0 g/dL Hematocrit 41.3 42-52 % Mean Corpuscular Volume 97.4 80-100 fL Mean Corpuscular Hemoglobin 33.0 25-34 pg Mean Corpuscular Hemoglobin Concent 33.9 32-36 g/dl RDW Standard Deviation 48.1 36.4-46.3 fL RDW Coefficient of Variation 13.6 11.5-14.5 % Platelet Count 196 130-400 K/uL Mean Platelet Volume 10.2 7.4-10.4 fL Sodium Level 139 136-145 mmol/L Potassium Level 4.1 3.5-5.1 mmol/L Chloride Level 104 98-107 mmol/L Carbon Dioxide Level 24 21-32 mmol/L Anion Gap 11.0 3-11 mmol/L Blood Urea Nitrogen 21 7-18 mg/dl Creatinine 1.10 0.60-1.40 mg/dl Est Creatinine Clear Calc Drug Dose 114.3 ml/min Estimated GFR () 85.3 Estimated GFR (Non- 73.6 BUN/Creatinine Ratio 19.0 10-20 Random Glucose 162 70-99 mg/dl Calcium Level 8.3 8.5-10.1 mg/dl
[2016-10-11 18:40] LABS: URINE APPEARANCE CLEAR (CLEAR); URINE BILIRUBIN NEG (NEG); URINE COLOR YELLOW; URINE NITRITE NEG (NEG); URINE SPECIFIC GRAVITY 1.039 (1.000-1.030); UROBILINOGEN NEG (NEG)
[2016-10-11 18:44] LABS: MANUAL MICROSCOPIC REQUIRED? NO; REVIEW REQ? NO
[2016-10-11] MEDS: LEVOTHYROXINE 175 MCG TAB PO SCH (20:35)
[2016-10-11] MEDS: CLONAZEPAM 1 MG TAB PO SCH (20:35)
[2016-10-11] MEDS: SIMVASTATIN 10 MG TAB PO SCH (20:36)
[2016-10-11] MEDS: SENNA 8.6 MG TAB PO SCH (20:36)
[2016-10-11] MEDS: TAMSULOSIN HCL 0.4 MG CAP PO SCH (20:37)
[2016-10-11] MEDS: AMITRIPTYLINE HCL 50 MG TAB PO SCH (20:37)
[2016-10-11] MEDS: ARIPIprazole TAB 10 MG TAB PO SCH (20:38)
[2016-10-11 23:08] VITALS: BP 125/77; PULSE 99; TEMP 36.6; O2SAT 94
[2016-10-12 05:41] LABS: BASO % 0.1 %; BASO ABS # 0.02 K/uL (0-0.2); COMPLETE YES; EOS % 0.3 %; HEMATOCRIT 37.8 % (42-52); IG% 0.9 %; LYMPH ABS # 1.37 K/uL (1.2-3.4); MEAN CELL VOLUME 96.7 fL (80-100); MEAN CORPUSCULAR HEMOGLOBIN 32.2 pg (25-34); MEAN CORPUSCULAR HGB CONC 33.3 g/dl (32-36); MEAN PLATELET VOLUME 10.5 fL (7.4-10.4); MONO % 11.9 %; NEUT % 77.8 %; PLATELET COUNT 187 K/uL (130-400); RED BLOOD COUNT 3.91 M/uL (4.7-6.1); WHITE BLOOD COUNT 15.19 K/uL (4.8-10.8)
[2016-10-12] MEDS: OXYCODONE HCL 10 MG TABCR (OXYCONTIN) PO SCH (05:48)
[2016-10-12 06:17] LABS: BLOOD UREA NITROGEN 18 mg/dl (7-18); BUN/CREATININE RATIO 19.5 (10-20); CALCIUM 8.4 mg/dl (8.5-10.1); CARBON DIOXIDE 30 mmol/L (21-32); CHLORIDE 104 mmol/L (98-107); GLUCOSE 104 mg/dl (70-99); SODIUM 141 mmol/L (136-145)
--- NOTE | 2016-10-12 07:07 | Orthopedic Progress Note ---
Orthopedic Progress Note Date of Service Oct 12, 2016. Subjective Post OP Day: 2 Reports: feeling well, pain controlled w PO medications, Denies: SOB, calf pain , chest pain, light headedness, nausea / vomiting Objective calves soft nontender, N/V intact, capillary refill less than 2 sec., dressing C /D/I (prevena intact), A&O x3, toes mobile Date Time Temp Pulse Resp B/P Pulse Ox O2 Delivery O2 Flow Rate FiO2 10/11/16 23:30 Room Air 10/11/16 23:08 36.6 99 16 125/77 94 Room Air 10/11/16 15:30 100 Nasal Cannula 2.0 10/11/16 13:11 100 10/11/16 11:00 36.8 91 18 119/73 99 Nasal Cannula 2.0 10/11/16 07:20 36.9 98 16 96/68 95 Room Air 10/11/16 07:15 Room Air Laboratory Results 24 Hours: Test 10/11/16 07:29 10/12/16 05:00 Hematocrit 41.3 % 37.8 % Hemoglobin 14.0 g/dL 12.6 g/dL White Blood Count 15.19 K/uL Red Blood Count 3.91 M/uL Mean Corpuscular Volume 96.7 fL Mean Corpuscular Hemoglobin 32.2 pg Mean Corpuscular Hemoglobin Concent 33.3 g/dl Platelet Count 187 K/uL Mean Platelet Volume 10.5 fL Neutrophils (%) (Auto) 77.8 % Lymphocytes (%) (Auto) 9.0 % Monocytes (%) (Auto) 11.9 % Eosinophils (%) (Auto) 0.3 % Basophils (%) (Auto) 0.1 % Neutrophils # (Auto) 11.81 K/uL Lymphocytes # (Auto) 1.37 K/uL Monocytes # (Auto) 1.81 K/uL Eosinophils # (Auto) 0.04 K/uL Basophils # (Auto) 0.02 K/uL Assessment & Plan Assessment: POD #2 s/p Left TKA -PT/OT -dvt proph with ALEX/SCD/ASA -prevena wound vac -agree with PT notes that patient would benefit from rehab stay, will await PT notes from today and will discuss with SS 1. Hypertension. 2. High cholesterol. 3. Sleep apnea. 4. Anxiety. 5. Hypothyroidism. Discharge Planning Discharge Planning: uncertain DVT Prophylaxis: TEDs, SCDs, ASA Therapy: Physical Therapy
[2016-10-12 07:18] LABS: POTASSIUM 4.3 mmol/L (3.5-5.1)
[2016-10-12 08:15] VITALS: BP 146/90; PULSE 103; TEMP 36.7; O2SAT 97
[2016-10-12 08:20] VITALS: O2SAT 97
[2016-10-12] MEDS: DOCUSATE SODIUM 100 MG CAP PO SCH (08:44)
[2016-10-12] MEDS: ASCORBIC ACID 500 MG TAB PO SCH (08:44)
[2016-10-12] MEDS: CEROVITE ADV FORMULA TAB PO SCH (08:44)
[2016-10-12] MEDS: GABAPENTIN 300 MG CAP PO SCH (08:44)
[2016-10-12] MEDS: ASPIRIN 325 MG ECTAB PO SCH (08:44)
[2016-10-12] MEDS: FERROUS GLUCONATE 324 MG TAB PO SCH ×2 (08:44→12:05)
[2016-10-12] MEDS: PANTOprazole SOD 40 MG TAB PO SCH (08:44)
[2016-10-12] MEDS: HYDROCODONE/ACETAMOPHEN 5/325MG TAB PO PRN ×2 (08:45→13:50)
[2016-10-12] MEDS: LATANOPROST 0.005% OP SOLN 2.5 ML BTL OP SCH (08:45)
[2016-10-12 12:00] VITALS: BP 146/90; PULSE 102; TEMP 36.6; O2SAT 97
[2016-10-12] MEDS: BuPROPion SR 150 MG TABCR PO SCH (12:05)
[2016-10-12 15:16] VITALS: BP 123/71; PULSE 101; TEMP 36.9; O2SAT 95
[2016-10-12] MEDS ORDERED: ASPEC325 PO (15:19)
[2016-10-12] MEDS ORDERED: PRT40 PO (15:19)
[2016-10-12] MEDS ORDERED: CLB200 PO (15:19)
[2016-10-12] MEDS ORDERED: OXYSR10 PO (15:19)
[2016-10-12] MEDS ORDERED: SNK PO (15:19)
[2016-10-12] MEDS ORDERED: HYDR-5688 PO (15:19)
[2016-10-12] MEDS ORDERED: ONDA8TAB6 PO (15:20)
--- NOTE | 2016-10-12 15:24 | Discharge Instructions ---
Discharge Instructions Admission Reason for Admission: Left Knee Osteoarthritis Discharge Discharge Diagnosis / Problem: Left Knee Djd Discharge Goals Goal(s): Decrease discomfort, Improve function Activity Recommendations Activity Level: Assistance Required Therapies: Physical Therapy (TKA protocol), Occupational Therapy (ADL'S and transfers) Weightbearing Status: Left weightbearing (as tolerated) . Additional Information Patient informed of condition: Yes Advance Directives: No DNR: No Level of Care: Skilled Communicable Disease: No Prognosis: Stable Seaman Catheter: No Instructions / Follow-Up Instructions / Follow-Up ACTIVITY RECOMMENDATIONS: SELF CARE INSTRUCTIONS AFTER TOTAL KNEE REPLACEMENT A. You may need to continue a physical therapy program after discharge from the hospital. There are several options available to you. Your doctor will assist you in selecting the best one for you. 1. An out-patient facility 2 to 3 times a week for therapy or home therapy. 2. Continue working on all exercises taught to you in the hospital. Your goals should be to increase bending of your knee to 90 degrees and beyond and to fully straighten your knee. B. You may progress at your own pace from walking with a walker or crutches to a cane; then to no assistive devices. C. Make walking a part of your daily routine. Be up as much as comfortable with rest periods throughout the day. Rest with leg elevation is very important. Use the ice wrap frequently for the first 3-4 weeks. D. There are no restrictions on activities. You may ride in a car, shop, participate in customer complaint clerk and all social activities. E. Wear the long elastic stockings (ALEX hose) 20 hours a day for 2 weeks after surgery. They can be removed several times a day for laundering and for a bath. F. You may shower, no tub baths until cleared by your doctor. SPECIAL CARE INSTRUCTIONS: VERY IMPORTANT TO READ AND REVIEW A. There are a few signs you need to watch for after you are home. Call [facility] if you notice any of the followin. Increased severe knee pain. Some pain is expected especially when you exercise. 2. Increased swelling in your leg or knee; pain or swelling of the calf muscle in either lower leg. 3. Any fluid drainage from the incision. 4. Shortness of breath or chest pain. B. Please call [facility] at if you have any concerns or questions about your operation or recovery. The doctor or his nurse will return your call promptly. C. You must take antibiotics before dental work, bladder, bowel or other surgery. Your doctor will provide you with a permanent care to carry describing this precaution. IMPORTANT: * REMEMBER TO TAKE ASPIRIN, 81 MG, TWICE DAILY FOR 4 WEEKS UNLESS OTHERWISE DIRECTED. THIS IS YOUR BLOOD THINNER. * HIGH RISK PATIENTS MAY BE PRESCRIBED A STRONGER BLOOD THINNER. THIS WILL BE PROVIDED AT DISCHARGE. * CALL IF INCREASED PAIN, REDNESS, DRAINAGE OR FEVER GREATER THAT 101. * WEAR ALEX HOSE 20 HOURS PER DAY FOR 2 WEEKS. * Prevena- This is a large suction dressing covering your incision. This will help pull any excess drainage from the wound and allow your incision to heal properly. You may shower with this if you can keep the unit outside of the shower. If any bleeding or leakage is noted please call your doctor's office. This will remain on your incision for 7 days and then should be removed. This can be done yourself or by the home nursing staff if applicable. The entire unit is disposable once removed. Once removed, keep incision clean and dry. If redness or drainage is noted, please call your surgeon. . FOLLOW UP VISIT: If appointment is not already scheduled: Please call [facility] to make a follow-up appointment for 2 weeks after your surgery at . Current Hospital Diet Patient's current hospital diet: Regular Diet Discharge Diet Recommended Diet: Regular Diet Procedures Procedures Performed: LEFT TOTAL KNEE ARTHROPLASTY Pending Studies Studies pending at discharge: no Physician Orders On Transfer Dressing Changes: Prevena dressing instructions noted above. Once off, you may cover with 4x4 gauze. If dry, you may leave to the open air. Vital Signs: routine Laboratory Results Hemoglobin A1c Test 09/17/16 12:48 Range/Units Estimated Average Glucose 117 mg/dl Hemoglobin A1c 5.7 H 4.5-5.6 % Medical Emergencies . Who to Call and When: Medical Emergencies: If at any time you feel your situation is an emergency, please call 911 immediately. . Non-Emergent Contact Non-Emergency issues call your: Surgeon Call Non-Emergent contact if: temperature is above 101, your pain is not controlled, your pain is worsening, wound has increased drainage, wound has increased redness . . "Provider Documentation" section prepared by Clement Arriaga. Core Measure Problem Core Measures: None
--- NOTE | 2016-10-12 15:49 | Progress Note ---
Internal Med Progress Note Date of Service: Oct 12, 2016. Provider Documentation: SUBJECTIVE: Patient is seen and examined at bedside. Feels well. Denies any symptoms. Denies any chest pain, SOB, fever, chills, burning micturition. OBJECTIVE: Vital Signs-as noted below Physical Exam: General Appearance:Obese, no apparent distress Head: normocephalic, Atraumatic Eyes: normal inspection, EOMI, PERRLA Neck: supple, no JVD, Trachea midline Respiratory/Chest: Normal breath sounds, CTA, No accessory muscle use Cardiovascular: S1, S2, No murmur Abdomen/GI:Soft, Non tender, Bowel sounds present Extremities/Musculoskelatal:Left knee in bandage, no edema Neurologic/Psych:AAOX3, grossly no focal neurological deficits Skin: normal color, warm Lab data as noted below. ASSESSMENT & PLAN: LEUKOCYTOSIS: Likely stress induced Improving Afebrile Currently no obvious source of infection Lactate, Procalcitonin: wnl UA: likley skin richa. clinically no symptoms of UTI Cough resolved No antibiotics needed Left Knee Arthroplasty: POD #2 Stable Pain control and anticoagulation per primary team PT/OT Bowel regimen to prevent constipation Hypertension: Well controlled Can resume losartan, HCTZ upon Discharge will monitor Dyslipidemia: Continue statin. H/O paranoid schizophrenia: Stable Continue home meds Asthma: Stable albuterol PRN Obstructive sleep apnea: Patient non complaint with CPAP use Suggest to use CPAP regularly Hypothyroidism: Continue Levothyroxine DVT Px: Per Primary team Disposition: Medically stable to be discharged. Vital Signs: Date Time Temp Pulse Resp B/P Pulse Ox O2 Delivery O2 Flow Rate FiO2 10/12/16 15:16 36.9 101 18 123/71 95 Room Air 10/12/16 12:00 36.6 102 17 146/90 97 Room Air 10/12/16 08:20 97 Room Air 10/12/16 08:15 36.7 103 19 146/90 97 Room Air 10/12/16 07:50 Room Air 10/11/16 23:30 Room Air 10/11/16 23:08 36.6 99 16 125/77 94 Room Air Lab Results: Results Past 24 Hours Test 10/11/16 17:19 10/12/16 05:00 10/12/16 06:50 Range/Units Lactic Acid Level 2.0 0.4-2.0 mmol/L Procalcitonin 0.09 0-0.5 ng/mL White Blood Count 15.19 4.8-10.8 K/uL Red Blood Count 3.91 4.7-6.1 M/uL Hemoglobin 12.6 14.0-18.0 g/dL Hematocrit 37.8 42-52 % Mean Corpuscular Volume 96.7 80-100 fL Mean Corpuscular Hemoglobin 32.2 25-34 pg Mean Corpuscular Hemoglobin Concent 33.3 32-36 g/dl Platelet Count 187 130-400 K/uL Mean Platelet Volume 10.5 7.4-10.4 fL Neutrophils (%) (Auto) 77.8 % Lymphocytes (%) (Auto) 9.0 % Monocytes (%) (Auto) 11.9 % Eosinophils (%) (Auto) 0.3 % Basophils (%) (Auto) 0.1 % Neutrophils # (Auto) 11.81 1.4-6.5 K/uL Lymphocytes # (Auto) 1.37 1.2-3.4 K/uL Monocytes # (Auto) 1.81 0.11-0.59 K/uL Eosinophils # (Auto) 0.04 0-0.5 K/uL Basophils # (Auto) 0.02 0-0.2 K/uL RDW Standard Deviation 47.6 36.4-46.3 fL RDW Coefficient of Variation 13.7 11.5-14.5 % Immature Granulocyte % (Auto) 0.9 % Immature Granulocyte # (Auto) 0.14 0.00-0.02 K/uL Sodium Level 141 136-145 mmol/L Potassium Level 4.3 3.5-5.1 mmol/L Chloride Level 104 98-107 mmol/L Carbon Dioxide Level 30 21-32 mmol/L Anion Gap 7.0 3-11 mmol/L Blood Urea Nitrogen 18 7-18 mg/dl Creatinine 0.90 0.60-1.40 mg/dl Est Creatinine Clear Calc Drug Dose 139.7 ml/min Estimated GFR () 108.7 Estimated GFR (Non- 93.8 BUN/Creatinine Ratio 19.5 10-20 Random Glucose 104 70-99 mg/dl Calcium Level 8.4 8.5-10.1 mg/dl Chemistry Specimen Hemolysis
[2016-10-12 16:04] VITALS: BP 123/71; PULSE 101; TEMP 36.9; O2SAT 95
--- NOTE | 2016-10-15 15:30 | DISCHARGE SUMMARY ---
DISCHARGE DIAGNOSIS: Degenerative joint disease, left knee. SECONDARY DIAGNOSES: Hypertension, hypercholesterolemia, sleep apnea, anxiety, and hypothyroidism. CONSULTS: Dr. Rajeev Mistry. Addendum for past medical history, paranoid schizophrenia. COMPLICATIONS: None. PROCEDURES: Left total knee arthroplasty performed by Dr. Torres on 10/10/2016. BRIEF HISTORY: As dictated in the history and physical. HOSPITAL SUMMARY: The patient was admitted on the above date and had the above-noted surgery performed, which he tolerated well. Postoperatively, medical management was consulted through [facility] and continued to follow the patient during his stay. On his first postoperative day, he was feeling well and pain was controlled. He had no complaints. Calves were soft and nontender, neurovascularly intact. Dressings clean, dry and intact. Toes were mobile. Vital signs were stable. He was afebrile. Hemoglobin was 14.0 and it was noted that his white count was 22.9, which was felt to be secondary to surgical stress and preoperative steroids. He was started on physical therapy protocol and continued on DVT prophylaxis and pain management and medical management per [facility]. By the second postoperative day, the patient did have a dry cough. Plans were to get a chest x-ray if the problems continued.; however, he was remaining stable. His wound was remaining benign and his pain was controlled. He was feeling well. The Prevena was intact and white count had come down from 22 down to 15 and there were no obvious signs of infection. He was otherwise remaining medically stable and orthopedically stable and it was felt that he could be discharged to a SNF by 10/12/2016. For further review, please see chart. LAB AND X-RAY DATA: As per chart. DISCHARGE INSTRUCTIONS: The patient was discharged to a SNF in satisfactory condition on 10/12/2016. DIET: Regular. ACTIVITY: Weightbearing as tolerated left lower extremity. Follow TKA instruction sheet and special care instructions as noted. Follow up with Dr. Torres in 2 weeks. The patient is to call for appointment if one has not been made for you. DISCHARGE MEDICATIONS: Aspirin 325 mg p.o. b.i.d., Celebrex 1 tab p.o. b.i.d., Carpenter 5/325 one to two tabs p.o. q. 4 hours p.r.n., Zofran 8 mg p.o. t.i.d., OxyContin 10 mg p.o. q. 12 hours, pantoprazole 40 mg p.o. q.a.m., and senna 17.2 mg p.o. at bedtime. Resume taking amitriptyline p.o. at bedtime, Abilify 2 tabs p.o. at bedtime, vitamin C 500 mg p.o. q.a.m., Wellbutrin SR 150 mg p.o. at noon, clonazepam 2-1/2 tablets p.o. at bedtime, gabapentin 300 mg p.o. b.i.d., Xalatan 0.005% drops one drop OP daily, levothyroxine 1 tab p.o. q.p.m. 175 mcg, losartan potassium/hydrochlorothiazide 1 tab p.o. q.a.m., multiple vitamin 1 tab p.o. q.a.m., and simvastatin 10 mg p.o. q.p.m. Stop taking your daily dose of aspirin. He will be taking aspirin twice daily for 30 days after the 30 days, you may resume your once daily dosing. MTDD
== END 2016-10-12 16:30 | DRG 470 ==
LOC: ENRESERVTM → ENRESERVDT → C.ACU 10:47 → C.3E 11:50
PROVIDERS: ADMIT Orthopaedic Surgery; ATTEND Orthopaedic Surgery
PROC: 0SRD0J9 Replacement of Left Knee Joint with Synthetic Substitute, Cemented, Open Approach (ICD-10-PCS; principal; 2016-10-10 14:00)
DX: M17.12 Unilateral primary osteoarthritis, left knee (principal); Z68.43 Body mass index [BMI] 50.0-59.9, adult; F20.0 Paranoid schizophrenia; M21.162 Varus deformity, not elsewhere classified, left knee; I10 Essential (primary) hypertension; E78.00 Pure hypercholesterolemia, unspecified; E78.5 Hyperlipidemia, unspecified; J45.909 Unspecified asthma, uncomplicated; E03.9 Hypothyroidism, unspecified; F41.9 Anxiety disorder, unspecified; F32.9 Major depressive disorder, single episode, unspecified; G47.33 Obstructive sleep apnea (adult) (pediatric); E66.01 Morbid (severe) obesity due to excess calories; Z99.89 Dependence on other enabling machines and devices; Z98.84 Bariatric surgery status; Z96.651 Presence of right artificial knee joint; Z87.891 Personal history of nicotine dependence; Z79.82 Long term (current) use of aspirin; Z79.891 Long term (current) use of opiate analgesic; Z79.899 Other long term (current) drug therapy